=== PATIENT | male | born 1980 | race Caucasian/White ===

== ENCOUNTER 2020-05-02 17:49 | Emergency (ER) | payer OTHER, SELFPAY ==
--- NOTE | ~2020-05-02 | XR_ITS ---
XR finger 4th RT min 2V 05/02/2020 18:14 Indication: Smashed finger working on truck. Procedure: 3 views right fourth finger Comparison: No prior studies for comparison. Findings: There is a nondisplaced tuft fracture fourth distal phalanx. Mild soft tissue swelling. No foreign bodies. Impression: 1: Nondisplaced tuft fracture right fourth distal phalanx. Reviewed, dictated and finalized at location A. ING SPECIALIST Impression: 1: Nondisplaced tuft fracture right fourth distal phalanx.
[2020-05-02 17:56] VITALS: BP 149/97; PULSE 75; RESP 16; TEMP 37.2; O2SAT 98
--- NOTE | 2020-05-02 18:07 | ED.UPPEXIN ---
HPI - Extremity Injury (Upper) General Chief Complaint: Extremity Injury, Upper Stated Complaint: right hand ring finger injury Time Seen by Provider: 05/02/20 18:07 Source: patient Mode of arrival: ambulatory Limitations: no limitations History of Present Illness HPI narrative: Zenon Haynes is a 40 yo male with PMH of depression who [facility] with a crush injury of his fourth left finger that occurred at work this morning. His nail is bruised as well as the distal finger and there is blood draining from underneath the nail. Pain is7/10, throbbing Injury occurred at work; patient has tried to control bleeding, decided to come for care finger Related Data Home Medications Medication Instructions Recorded Confirmed sertraline 100 mg PO DAILY 05/02/20 05/02/20 Allergies Allergy/AdvReac Type Severity Reaction Status Date / Time No Known Allergies Allergy Verified 05/02/20 18:03 Review of Systems Review of Systems: Narrative: CONSTITUTIONAL: Denies fever, chills, sweats. EYES: Denies visual changes, redness, discharge. ENT: Denies rhinorrhea, congestion, sore throat, otalgia. CARDIOVASCULAR: Denies chest pain, palpitations, edema. RESPIRATORY: Denies dyspnea, wheezing, cough GASTROINTESTINAL: Denies abdominal pain, nausea, vomiting, diarrhea. GENITOURINARY: Denies dysuria, hematuria, abnormal discharge SKIN: Denies rash or itching. Ecchymosis of the fourth left finger with bleeding from any of the nail NEUROLOGIC: Denies numbness, or focal weakness. PSYCHIATRIC: Denies anxiety or depression. [facility] Past Medical History Medical History No active medical problems Family History Family History Other No acute medical problems Social History Social History (Updated 05/02/20 @ 18:36 by Dana Martinez CNP) Smoking status: Never smoker Alcohol intake: current Comments At time of signature, I agree with nursing past medical, surgical, social and family history. There is no relevant family history pertinent to the presenting complaint. Exam Narrative: Exam Narrative: GENERAL: This is a well-nourished, well-developed patient, in mild distress. HEAD: normocephalic, atraumatic. EYES: PERRL. Sclera clear/white. Vision is grossly intact. EARS: External ears normal, auditory canals clear and without drainage, TMs normal without perforation. Hearing grossly intact. NOSE: External nose normal without nasal discharge, nares without redness, no rhinorrhea. THROAT: Mucous membranes moist, posterior pharynx NECK: Neck supple, non-tender CARDIOVASCULAR: Regular rate and rhythm without murmurs, gallops, or rubs. RESPIRATORY: Clear to auscultation. Breath sounds equal bilaterally. No wheezes, rales, or rhonchi. GASTROINTESTINAL: Abdomen soft, non-tender, SKIN: warm, intact with no suspicious lesions or rash, good texture and turgor. NEURO: awake, alert, and oriented to person, place and time. There were no obvious focal neurologic abnormalities. Steady gait EXTREMITIES: Normal range of motion. Fourth left finger ecchymosis with limited range of motion at the PDP-x-ray shows tuft fracture, is oozing blood and has hematoma under the nail-nail is pulled up but still intact at nailbed BACK: Nontender without deformity Course Course Emergency Course: Came to [facility] with a crush injury of the distal fourth finger on the left X-ray shows a tuft fracture nondisplaced of the fourth distal phalanx; Rocephin 1 g given for fracture here Use cautery gun to release pressure from bleeding under nail, finger placed in splint, given Toradol for pain and tetanus injections in this been 6 years since he received tetanus injection Vital Signs Vital signs: Vital Signs Temperature 98.9 F 05/02/20 17:56 Pulse Rate 75 05/02/20 17:56 Respiratory Rate 16 05/02/20 17:56 Blood Pressure 149/97 H
[2020-05-02] MEDS: LIDOCAINE HCL 1% LOCAL INJ 20 ML VIAL 2.1 ML IM (18:27)
[2020-05-02] MEDS: cefTRIAXone 1 GM VIAL IM (18:28)
[2020-05-02] MEDS: TETANUS,DIPHTHERIA,AC PERTUSSIS ADULT (0.5 ML) BOOSTRIX IM (18:53)
[2020-05-02] MEDS: KETOROLAC (*BKC) 60 MG/2 ML VIAL IM (18:54)
== END 2020-05-02 19:08 | disposition home or self-care (01) ==
PROVIDERS: Emergency Provider Nurse Practitioner; PCP Family Medicine
DX: S62.665A Nondisplaced fracture of distal phalanx of left ring finger, initial encounter for closed fracture (principal); X58.XXXA Exposure to other specified factors, initial encounter; Y99.0 Civilian activity done for income or pay; Z23 Encounter for immunization
CPT/HCPCS: 29130; 11740; 73140; 90471; 90715; 96372; 99204; G0463; J0696; J1885

== ENCOUNTER 2021-03-15 15:15 | Emergency (ER) | payer OTHER, SELFPAY ==
--- NOTE | ~2021-03-15 | XR_ITS ---
EXAMINATION: XR chest 2V 03/15/2021 16:15 INDICATION: Shortness of breath for 2-3 weeks PROCEDURE: 2 view chest COMPARISON: No prior studies for comparison. FINDINGS: The lungs are clear. The cardiomediastinal silhouette is within normal limits. There are no pleural effusions. There is no pneumothorax suspected. IMPRESSION: 1: NO ACUTE CARDIOPULMONARY DISEASE. Reviewed, dictated and finalized at location A. INIST CLASS B
[2021-03-15 15:30] VITALS: BP 140/95; PULSE 68; RESP 18; TEMP 37; O2SAT 99
--- NOTE | 2021-03-15 15:44 | ECG_ITS ---
Measurements Intervals [place] Rate: 66 P: 15 DC: 146 QRS: 44 QRSD: 88 T: -31 QT: 382 QTc: 403 Interpretive Statements SINUS RHYTHM MINIMAL Q WAVES- HIGH LATERAL LEADS BORDERLINE ST-T WAVE ABNORMALITY- ANTEROLAT/INF LEADS BORDERLINE ECG Electronically Signed On 03-15-2021 17:08:24 TILER'S ASSISTANT by Shaheed Oconnor D.O.
--- NOTE | 2021-03-15 16:12 | ED.GENADULT ---
HPI - General Adult General Chief complaint: Chest Pain Stated complaint: Chest Pain Time Seen by Provider: 03/15/21 15:44 Source: patient, family, RN notes reviewed and old records reviewed Mode of arrival: ambulatory Limitations: no limitations History of Present Illness HPI narrative: 41-year-old male accompanied by [facility] with complaints of 2-week duration of midsternal chest pain which is intermittent of varying degrees. He also states he has some lower back pain he has some intermittent tingling in both arms especially the left and has noticed some shortness of breath with activity. Patient states that he has a lot of stress in his life right now with his work, and kids. He is suppose to take oral antidepressant daily but states he does forget at times. Patient denies any increase discomfort with deep breathing. He denies any chills or fevers or any body aches, has not had Covid or flu vaccinations.Patient states that his symptoms have increased today especially the feelings of dyspnea. MD complaint: intermittent chest pain Onset (ago): week(s) (2) Location: chest Related Data Home Medications Medication Instructions Recorded Confirmed sertraline 100 mg PO DAILY 05/02/20 05/02/20 Allergies Allergy/AdvReac Type Severity Reaction Status Date / Time No Known Allergies Allergy Verified 05/02/20 18:03 Review of Systems Review of Systems: CONSTITUTIONAL: Denies fever, chills, or sweats. EYES: Denies visual changes, redness, or discharge. ENT: Denies rhinorrhea, congestion, sore throat, or otalgia. CARDIOVASCULAR: Positive for intermittent sternal chest pain,no palpitations, or edema. RESPIRATORY: Denies cough positive for some dyspnea with exertion GASTROINTESTINAL: Denies abdominal pain, nausea, vomiting, or diarrhea. GENITOURINARY: Denies dysuria or hematuria. SKIN: Denies rash or itching. MUSCULOSKELETAL:Positive for lower back pain, joint pain, no myalgia. NEUROLOGIC: Denies headache, numbness, or weakness. PSYCHIATRIC:Positive for anxiety or depression. All systems reviewed & are unremarkable except as noted in HPI and below PMFSH Past Medical History Medical History (Updated 03/18/21 @ 19:56 by Nadine Dominguez NP) Anxiety and depression Bulging of intervertebral disc Fracture of coccyx GERD (gastroesophageal reflux disease) Surgical History Surgical History (Updated 03/18/21 @ 19:40 by Nadine Dominguez NP) No history of previous surgery Family History Family History (Updated 03/18/21 @ 19:41 by Nadine Dominguez NP) Mother Diabetes mellitus Grandparent Aortic aneurysm Social History Social History (Updated 03/18/21 @ 19:42 by Nadine Dominguez NP) Smoking status: Never smoker Alcohol intake: current Alcohol use details: social Substance use: never Living arrangements: with family Additional occupation/education comments: pump mechanic Gender identity (if verbalized by the patient): Male Comments At time of signature, agree with nursing past medical, surgical, social and family history. There is no relevant family history pertinent to the presenting complaint Exam Narrative: GENERAL: Well-appearing, well-nourished, and in no acute distress, anxious HEAD: Normocephalic, atraumatic. EYES: PERRLA and EOMI. ENT: Nares clear, no rhinorrhea or epistaxis. Mucous membranes moist.TM's normal with good light reflex, throat pink with no lesions or exudates no tonsil enlargement NECK: Supple.no lymphadenopathy CHEST: Clear to auscultation. No respiratory distress.no tachypnea noted or any accessory muscle use. HEART: Regular rate and rhythm. No murmur heard. Normal peripheral pulses. sternal area pain intermittent, rates pain as 5/10 reports pressure and tightness, no increase pain with deep breathing. ABDOMEN: Soft, nontender, nondistended, normal active bowel sounds. EXTREMITIES: Normal range of motion. No edema. SKIN: Warm, dry, no rash. NEURO: No focal d
== END 2021-03-15 16:45 | disposition short-term general hospital (02) ==
PROVIDERS: Emergency Provider Registered Nurse; PCP Family Medicine
DX: R07.9 Chest pain, unspecified (principal); Z20.822 Contact with and (suspected) exposure to COVID-19; K21.9 Gastro-esophageal reflux disease without esophagitis; F41.9 Anxiety disorder, unspecified; F32.A Depression, unspecified
CPT/HCPCS: 71046; 87426; 93005; 99213; C9803; G0463